=== PATIENT | male | born 1985 | race Caucasian/White ===

== ENCOUNTER → 2019-04-20 09:24 | Outpatient (CLI) | payer BC, SELFPAY ==
[2019-04-20 12:40] LABS: Cholesterol 161 mg/dL (200); Glucose 100 mg/dL (74-106); High Density Lipoprotein 38 mg/dL; Triglycerides 125 mg/dL; Very Low Density Lipoprotein 25 mg/dL (5-40)
== END ==
PROVIDERS: Family Provider Family Medicine; PCP Family Medicine; Visit Provider Family Medicine
DX: Z00.00 Encounter for general adult medical examination without abnormal findings (principal)
CPT/HCPCS: 36415; 80061; 82947

== ENCOUNTER → 2020-05-09 08:58 | Outpatient (CLI) | payer BC, SELFPAY ==
[2017-08-05 09:52] VITALS: BMI 28.4
[2020-05-09 13:35] LABS: Cholesterol 201 mg/dL (200); Glucose 96 mg/dL (74-106); High Density Lipoprotein 46 mg/dL; Triglycerides 171 mg/dL; Very Low Density Lipoprotein 34 mg/dL (5-40)
== END ==
PROVIDERS: PCP Family Medicine; Visit Provider Family Medicine
DX: Z00.00 Encounter for general adult medical examination without abnormal findings (principal)
CPT/HCPCS: 36415; 80061; 82947